=== PATIENT | female | born 1995 | race Native Hawaiian/Other Pacific Islander ===

== ENCOUNTER 2016-10-31 10:22 | Emergency (ER) | payer OTHER ==
[~2016-10-31] VITALS: Ht 162.6 cm; Wt 86.2 kg
[2016-10-31 11:30] VITALS: BP 120/70; TEMP 98.2
== END 2016-10-31 11:36 | disposition home or self-care (01) ==
LOC: ED 10:22
DX: S60.221A Contusion of right hand, initial encounter (principal); W18.00XA Striking against unspecified object with subsequent fall, initial encounter; Y92.239 Unspecified place in hospital as the place of occurrence of the external cause
CPT/HCPCS: 99282